=== PATIENT | female | born 1985 | race Caucasian/White ===

== ENCOUNTER 2016-07-05 11:40 | Inpatient (IN) | payer OTHER ==
[~2016-07-05] VITALS: Ht 167.6 cm; Wt 107.1 kg
[~2016-07-05 11:40] MED LIST: FERR-31 PO; PRENAT PO
[2016-07-05 12:05] VITALS: Ht 167.6 cm; Wt 107.1 kg
[2016-07-05 12:06] VITALS: BP 116/71; PULSE 93; RESP 18
--- NOTE | 2016-07-05 13:53 | RADRPT ---
PROCEDURE: US OB biophysical profile. CLINICAL INDICATION: decreased movements, size and dates TECHNIQUE: Multiple sonographic images of the pelvis were obtained. The images were reviewed on a PACS workstation. COMPARISON: 06/26/2016 FINDINGS: There is a single viable intrauterine gestation. Cardiac activity is present with 125 beats per min [place] band. There is a vertex presentation. The placenta is anterior. There is no evidence of placental abruption. There is a normal amount of amniotic fluid with an VERA = 13.6 cm. Biophysical profile: movement 0/2 tone 2/2. breathing 2/2 VERA 2/2 Total 08/15 RPTAT: AA . IMPRESSION: ABNORMAL biophysical profile. No significant movement noted during the study . Close follow-up is recommended. A call report was made and the findings discussed with nurse Patel at 07/05/2016 1:49:46 PM. .Francisco Dale MD, MD Date Time Electronically viewed and signed by .Francisco Dale MD, on 07/05/2016 13:53 .S/
[2016-07-05] MEDS ORDERED: CARBOPROST 250 MCG INJ IM PRN (14:30)
[2016-07-05] MEDS ORDERED: LACTATED RINGER'S 1,000 ML IV PRN (14:30)
[2016-07-05] MEDS ORDERED: OXYTOCIN 30 UNITS/LR 500 ML IV PRN (14:30)
[2016-07-05] MEDS ORDERED: BUTORPHANOL 2 MG INJ IV PRN (14:30)
[2016-07-05] MEDS ORDERED: METHYLERGONOVINE 0.2 MG INJ IM PRN (14:30)
[2016-07-05] MEDS ORDERED: IBUPROFEN 600 MG TAB PO PRN (14:30)
[2016-07-05] MEDS ORDERED: MISOPROSTOL 200 MCG TAB PR PRN (14:30)
[2016-07-05] MEDS ORDERED: LIDOCAINE 1% (MPF) 30 ML INJ INJ PRN (14:30)
[2016-07-05] MEDS ORDERED: DINOPROSTONE 10 MG VAG SUPP VAG ONE (15:00)
--- NOTE | 2016-07-05 15:10 | TRIAGE ---
OB Triage Datetime Report Generated by CPN: 07/05/2016 15:10 Datetime: 07/05/2016 14:52 Assessment Type: Admission Assessment Vaginal Bleeding: None Maternal Assessment Level of Consciousness: Fully Conscious DTR's/Clonus: DTRs 2+; No Clonus Headache: Denies Blurred Vision: No Respiratory Effort: Unlabored; Regular Rhythm; Equal Expansion Breath Sounds, Left: Clear and Equal Breath Sounds, Right: Clear and Equal Nausea/Vomiting: Denies RUQ Epigastric Pain: Denies Lower Extremities Edema: Bilateral Lower Extremities Upper Extremities Edema: Bilateral Upper Extremities Facial Edema: None Fall Risk Assessment History of Falling: (0) No Secondary Diagnosis: (0) No Ambulatory Aid: (0) Bedrest/Nurse Assist IV Therapy: (0) No Gait: (0) Normal/Bedrest/Immobile Mental Status: (0) Oriented to Own Ability Fall Score: 0 Fall Risk Score Definition: No Risk: No action required Pain Assessment Pain Scale: 0 Pain Presence: None/Denies Pain Type: N/A Pain Goal: 4 Membrane Status: Intact Datetime: 07/05/2016 14:40 Assessment Type: Ongoing Assessment Vaginal Bleeding: None Maternal Assessment Level of Consciousness: Fully Conscious DTR's/Clonus: DTRs 2+; No Clonus Headache: Denies Blurred Vision: No Respiratory Effort: Unlabored; Regular Rhythm; Equal Expansion Breath Sounds, Left: Clear and Equal Breath Sounds, Right: Clear and Equal Nausea/Vomiting: Denies RUQ Epigastric Pain: Denies Lower Extremities Edema: Bilateral Lower Extremities Upper Extremities Edema: Bilateral Upper Extremities Facial Edema: None Fall Risk Assessment History of Falling: (0) No Secondary Diagnosis: (0) No Ambulatory Aid: (0) Bedrest/Nurse Assist IV Therapy: (0) No Gait: (0) Normal/Bedrest/Immobile Mental Status: (0) Oriented to Own Ability Fall Score: 0 Fall Risk Score Definition: No Risk: No action required Pain Assessment Pain Scale: 0 Pain Presence: None/Denies Pain Type: N/A Pain Goal: 4 Membrane Status: Intact Datetime: 07/05/2016 14:32 Pain Assessment Pain Scale: 0 Pain Presence: None/Denies Pain Type: N/A Pain Goal: 4 Datetime: 07/05/2016 14:28 Arrived By: Ambulatory Arrived From: Home Datetime: 07/05/2016 13:51 Vaginal Exam Dilatation (cms): 1.0 Effacement (%): 40 Station: -3 Exam By: Mercy, RN Datetime: 07/05/2016 12:54 Headache: Denies Blurred Vision: No RUQ Epigastric Pain: Denies Facial Edema: None Labor Evaluation Frequency: irr Quality: Mild Pattern: Normal: <= 5 Contractions in 10 Minutes Resting Tone [place]: Relaxed Heart Rate FHR Baseline Rate: 135 FHR Baseline Changes: No Baseline Change Variability: Moderate 6-25 bpm Accelerations: 15X15 Decelerations: None Category: Category I Membrane Status: Intact Datetime: 07/05/2016 12:35 Heart Rate FHR Baseline Rate: 140 FHR Baseline Changes: No Baseline Change Comments: toco and u/s adjusted Datetime: 07/05/2016 12:21 Comments: maternal pulse Datetime: 07/05/2016 12:01 Stage of : OB Triage Maternal Assessment Level of Consciousness: Fully Conscious DTR's/Clonus: DTRs 2+; No Clonus Headache: Denies Blurred Vision: No Respiratory Effort: Unlabored; Regular Rhythm; Equal Expansion Breath Sounds, Left: Clear and Equal Breath Sounds, Right: Clear and Equal Nausea/Vomiting: Denies RUQ Epigastric Pain: Denies Lower Extremities Edema: Bilateral Lower Extremities Degree: 1+ Upper Extremities Edema: None Facial Edema: None Temperature Route: Oral Fall Risk Assessment History of Falling: (0) No Secondary Diagnosis: (0) No Ambulatory Aid: (0) Bedrest/Nurse Assist IV Therapy: (0) No Gait: (0) Normal/Bedrest/Immobile Mental Status: (0) Oriented to Own Ability Fall Score: 0 Fall Risk Score Definition: No Risk: No action required Monitor Mode: External Heart Rate FHR Baseline Rate: 133 (Annotations: initial) Monitor Mode: External US Comments: 0 Datetime: 07/05/2016 11:56 Time of Arrival: 07/05/2016 14:28 EGA: 37.5 Arrived By: Ambulatory Arrived From: Home Chief Complaint: bleeding Movement: Present Contractions: Occasional Rupture of Membranes: Denies Vaginal Bleeding: Small Vaginal Discharge: Present Recent Sexual Intercouse: Yes Abdominal Trauma: Not Applicable Patient Complaints: None Time Provider Notified: 07/05/2016 12:21 Provider Notified: Dr Paris Initial Plan: efm/ u/s for BPP
[2016-07-05 15:39] LABS: ADD SCAN DIFF NO
[2016-07-05 15:42] LABS: BASOPHILS % 0.2 % (0.0-2.0); EOSINOPHILS # 0.1 10^3/ul (0.0-0.5); EOSINOPHILS % 0.9 % (0.0-7.0); HEMATOCRIT 35.7 % (37.0-47.0); HEMOGLOBIN 11.8 g/dl (12.0-16.0); LYMPHOCYTES # 2.5 10^3/ul (0.8-2.9); LYMPHOCYTES % 20.8 % (15.0-51.0); MEAN CORPUSCULAR HEMOGLOBIN 27.6 pg (29.0-33.0); MEAN CORPUSCULAR HGB CONC 33.1 g/dl (32.0-37.0); MEAN CORPUSCULAR VOLUME 83.4 fl (82.0-101.0); MEAN PLATELET VOLUME 10.4 fl (7.4-10.4); MONOCYTE # 0.8 10^3/ul (0.3-0.9); MONOCYTES % 6.2 % (0.0-11.0); NEUTROPHIL # 8.6 10^3/ul (1.6-7.5); NEUTROPHILS % 71.3 % (39.0-77.0); PLATELET COUNT 287 10^3/UL (140-415); RED BLOOD COUNT 4.28 10^6/ul (4.20-5.40); RED CELL DISTRIBUTION WIDTH 13.8 % (11.5-14.5)
[2016-07-05] MEDS: LACTATED RINGER'S 1,000 ML IV SCH ×2 (15:56→19:33)
[2016-07-05 15:57] LABS: INR 0.94; PROTIME 12.6 Sec (12.2-14.2)
[2016-07-05 15:58] LABS: PARTIAL THROMBOPLASTIN TIME 31.6 Sec (25.0-35.0)
[2016-07-05] MEDS ORDERED: ONDANSETRON 4 MG INJ IV PRN (23:00)
--- NOTE | 2016-07-06 00:30 | NSTRPT ---
NST Information Datetime Report Generated by CPN: 07/06/2016 00:30 Datetime: 07/03/2016 10:19 NST Information EGA: 37.3 Test Number: 2 Time on Monitor: 07/03/2016 10:27 Time off Monitor: 07/03/2016 10:57 NST Duration (Min): 30 Reason for NST: Other Reason for NST Other: SMALL FOR DATES Test and Monitor Explained: Monitor Explained; Test Explained; Verbalized Understanding; Breastfee ding Info Given Pulse: 82 Resp: 18 SBP: 109 DBP: 69 Test Evaluation NST Interventions: None Patient States Movement: Present Contraction Frequency: NONE FHR Baseline : 130 Variability: Moderate 6-25bpm Accelerations: 15X15 FHR Category: Category I NST Results: Reactive Comments: PT TO U/S. VERA 13.8cm. CEPHALIC. 1142-Pt home undelivered with LABOR precautions. Follow up NST appointment given. Kick Count instructions reviewed. Pt states underestanding. No furh ter questions asked at this time. Electronically Signed By E-Signature: with User ID: [id number] Datetime: 06/26/2016 10:18 NST Information EGA: 36.3 Datetime: 06/26/2016 10:10 NST Duration (Min): 33
[2016-07-06] MEDS: LACTATED RINGER'S 1,000 ML IV SCH ×2 (00:39→03:32)
[2016-07-06] MEDS ORDERED: FENTAnyl 2MCG/ML-ROPIV 0.2% 100 ML ONE (01:02)
[2016-07-06] MEDS ORDERED: METHYLERGONOVINE 0.2 MG INJ IM PRN (06:00)
[2016-07-06] MEDS ORDERED: LANOLIN 7 GM TUBE TOP PRN (06:00)
[2016-07-06] MEDS ORDERED: ACETAMINOPHEN 325 MG TAB PO PRN ×2 (06:00)
[2016-07-06] MEDS ORDERED: BENZOCAINE 20% 56 ML SPRAY TOP PRN (06:00)
[2016-07-06] MEDS ORDERED: OXYTOCIN 30 UNITS/LR 500 ML IV PRN (06:00)
[2016-07-06] MEDS ORDERED: CARBOPROST 250 MCG INJ IM PRN (06:00)
[2016-07-06] MEDS ORDERED: ONDANSETRON 4 MG INJ IV PRN (06:00)
[2016-07-06] MEDS ORDERED: DIBUCAINE 1% 30 GM OINT PR PRN (06:00)
[2016-07-06] MEDS ORDERED: DIPHENHYDRAMINE 25 MG CAP PO PRN (06:00)
[2016-07-06] MEDS ORDERED: ACETAMINOPHEN/CODEINE #3 TAB PO PRN ×2 (06:00)
[2016-07-06] MEDS ORDERED: MISOPROSTOL 200 MCG TAB PR PRN (06:00)
--- NOTE | 2016-07-06 06:04 | HP ---
Date/Time of Note Date/Time of Note DATE: 07/05 TIME: 10 PM OB - History Hx of Present Last Menstrual Period: Oct 18, 2015 (10/2015) Estimated Due Date: July 21, 2016 : 2 Para: 1 Care: Good Care Ultrasounds: Normal mid trimester US Obstetrical Complications: None, Growth Restriction Past Family/Social History * Past Medical, Surgical, Family and Obstetric Histories reviewed from chart. Blood Type: O+ Rubella: immune RPR/VDRL: Negative GBS Status: Negative HBsAG: Negative OB Admission Exam Vital Signs Vital Signs Vital Signs Date Time Temp Pulse Resp B/P Pulse Ox O2 Delivery O2 Flow Rate FiO2 07/05/16 12:06 98.0 93 18 116/71 98 Room Air Physical Exam HEENT: WNL Heart: Rhythm Normal Lungs: Clear, Equal Abdomen: WNL Extremities: Normal Reflexes: Normal Cervical Dilatation: 1cm Effacement: 50% Station: -2 Membranes: Intact Heart Rate: 120's Accelerations: Accelerations Present Varibility: Moderate Contractions on Admission: >10 Minutes Apart Intensity: Mild Last 72 hours Lab Results CBC & BMP 07/05/16 14:20 OB Assessment/Plan Reason for admission: induction of labor, vaginal bleeding Other Assessment: started bleeding BPP 6/8 FOR INDUCTION Plan: Induction Induction Method: per Misoprostol Protocol Other plan: DELIVERY SENG FERNANDEZ MD Jul 06, 2016 06:04
--- NOTE | 2016-07-06 06:07 | LDN ---
Date/Time of Note Date/Time of Note DATE: 07/06/16 TIME: 06:04 Delivery Summary SPONTANEOUS VAGINAL DELIVERY Weeks of Gestation 37.6 WEEKS Placenta Delivered: Spontaneously Meconium: none Episiotomy: No Sponge & Needle done & correct: Yes All needle counts correct: Yes Any foreign bodies felt in the: No Problems: Delivery Information Sex Sex: female Apgars 1 Minute: 9 5 Minute: 9 Suctioning Nose & mouth suctioned at lesley: No Delee suction performed: No Umbilical Cord Umbilical cord with: 3 Vessels Cord presentations: nuchal cord Nuchal cord present X: 1 Cord Blood was obtained: Yes Mother & Baby Disposition Disposition Mom & Baby to Maternity; Good: Yes SENG FERNANDEZ MD Jul 06, 2016 06:07
[2016-07-06] MEDS: OXYTOCIN 30 UNITS/LR 500 ML IV SCH ×7 (06:45→22:08)
[2016-07-06] MEDS: IBUPROFEN 800 MG TAB PO SCH ×3 (09:01→17:57)
[2016-07-06 10:20] VITALS: BP 114/74; PULSE 75; RESP 16
[2016-07-06 11:55] VITALS: BP 103/64; PULSE 73; RESP 14
[2016-07-06] MEDS: SENNA/DOCUSATE NA (8.6MG/50MG) TAB PO SCH ×2 (12:02→21:08)
[2016-07-06 16:00] VITALS: BP 112/69; PULSE 75; RESP 14
[2016-07-06 20:00] VITALS: BP 120/66; PULSE 70; RESP 20
[2016-07-07] MEDS: IBUPROFEN 800 MG TAB PO SCH ×5 (00:01→23:25)
[2016-07-07] MEDS: OXYTOCIN 30 UNITS/LR 500 ML IV SCH ×2 (02:08→06:08)
[2016-07-07 04:11] VITALS: BP 119/62; PULSE 70; RESP 20
[2016-07-07 07:38] LABS: ADD SCAN DIFF NO
[2016-07-07 07:42] LABS: BASOPHILS % 0.4 % (0.0-2.0); EOSINOPHILS # 0.2 10^3/ul (0.0-0.5); EOSINOPHILS % 2.3 % (0.0-7.0); LYMPHOCYTES # 3.4 10^3/ul (0.8-2.9); LYMPHOCYTES % 34.5 % (15.0-51.0); MEAN CORPUSCULAR HGB CONC 32.3 g/dl (32.0-37.0); MEAN CORPUSCULAR VOLUME 83.8 fl (82.0-101.0); MEAN PLATELET VOLUME 10.2 fl (7.4-10.4); MONOCYTE # 0.6 10^3/ul (0.3-0.9); MONOCYTES % 5.9 % (0.0-11.0); NEUTROPHIL # 5.6 10^3/ul (1.6-7.5); NEUTROPHILS % 56.5 % (39.0-77.0); PLATELET COUNT 233 10^3/UL (140-415); RED CELL DISTRIBUTION WIDTH 13.8 % (11.5-14.5)
[2016-07-07 08:20] VITALS: BP 116/70; PULSE 68; RESP 17
[2016-07-07] MEDS: SENNA/DOCUSATE NA (8.6MG/50MG) TAB PO SCH ×2 (09:54→21:00)
--- NOTE | 2016-07-07 13:30 | PN ---
Date/Time of Note Date/Time of Note DATE: 07/07/16 TIME: 13:29 OB Subjective Subjective Subjective day 1 doing well breast feeding uterus contracted lochia normal OB Objective HEENT: WNL Heart: Rhythm Normal Lungs: Clear, Equal Abdomen: WNL Extremities: Normal Reflexes: Normal SENG FERNANDEZ MD Jul 07, 2016 13:30
[2016-07-07 16:00] VITALS: BP 117/66; PULSE 73; RESP 16
[2016-07-07 20:00] VITALS: BP 110/68; PULSE 72; RESP 20
[2016-07-08 04:19] VITALS: BP 122/62; PULSE 72; RESP 20
[2016-07-08] MEDS: IBUPROFEN 800 MG TAB PO SCH ×2 (05:13→12:40)
[2016-07-08 08:00] VITALS: BP 111/68; PULSE 92; RESP 18
[2016-07-08] MEDS: SENNA/DOCUSATE NA (8.6MG/50MG) TAB PO SCH (08:59)
[2016-07-08] MEDS ORDERED: DIPHTH/TET/ACEL PERTUSS (ADULT) 0.5 ML VIAL IM* ONE (09:00)
[2016-07-08] MEDS ORDERED: VARICELLA VACCINE LIVE/PF 1,350 UNIT/0.5 ML ML SC* ONE (09:00)
--- NOTE | 2016-07-08 09:59 | PD.PPDC ---
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
--- NOTE | 2016-07-08 10:56 | DS ---
Date/Time of Note Date/Time of Note DATE: 07/08/16 TIME: 10:55 Obstetrical Discharge Record Final Diagnosis Final Diagnosis: Term delivered Vaginal Delivery Obstetrical Delivery: Spontaneous Complications Other Induction: Yes Condition on Discharge Physical Assessment Voiding: Yes Bowel Movement: Yes Breast: Soft, non-tender, Filling Fundus: Firm Calf Tenderness: No Patient Condition: Good SENG FERNANDEZ MD July 08, 2016 10:56
== END 2016-07-08 14:51 | disposition home or self-care (01) | DRG 775 ==
LOC: OBT 11:40 → L-D 11:41 → OBT 14:00 → L-D 14:00 → PP1 07-06 10:01
PROVIDERS: ADMIT Obstetrics & Gynecology; ATTEND Obstetrics & Gynecology
PROC: 10E0XZZ Delivery of Products of Conception, External Approach (ICD-10-PCS; principal; 2016-07-06)
DX: O69.81X0 Labor and delivery complicated by cord around neck, without compression, not applicable or unspecified (principal); Z37.0 Single live birth; Z3A.37 37 weeks gestation of pregnancy
CPT/HCPCS: 62319; 76818; 85025; 85610; 85730; 86592; 86900; 86901; 88307; 90715; 90716; C1751; G0463; J2405; J2590; J3010; J7120

== ENCOUNTER 2017-11-25 17:07 | Outpatient (CLI) | END 2017-11-25 21:20 | disposition home or self-care (01) ==

== ENCOUNTER 2018-01-21 13:27 | Outpatient (CLI) | END 2018-01-21 15:39 | disposition home or self-care (01) ==

== ENCOUNTER 2018-02-23 21:02 | Outpatient (CLI) | END 2018-02-24 00:02 | disposition home or self-care (01) ==

== ENCOUNTER 2018-02-27 00:19 | Outpatient (CLI) | END 2018-02-27 03:15 | disposition home or self-care (01) ==

== ENCOUNTER 2018-03-01 08:00 | Inpatient (IN) | payer OTHER ==
[~2018-03-01] VITALS: Ht 167.6 cm; Wt 117.7 kg
[~2018-03-01 08:00] MED LIST changes: +FER325 PO; -FERR-31 PO; +FOLI0.4T2 PO; +PREN-93 PO; -PRENAT PO
[2018-03-01] MEDS ORDERED: LACTATED RINGER'S 1,000 ML IV PRN (11:58)
[2018-03-01] MEDS ORDERED: CARBOPROST 250 MCG INJ IM PRN (12:00)
[2018-03-01] MEDS ORDERED: IBUPROFEN 600 MG TAB PO PRN (12:00)
[2018-03-01] MEDS ORDERED: METHYLERGONOVINE 0.2 MG INJ IM PRN (12:00)
[2018-03-01] MEDS ORDERED: OXYTOCIN 30 UNITS/LR 500 ML IV SCH ×2 (12:00)
[2018-03-01] MEDS ORDERED: MISOPROSTOL 200 MCG TAB PR PRN (12:00)
[2018-03-01] MEDS ORDERED: BUTORPHANOL 2 MG INJ IV PRN (12:00)
[2018-03-01] MEDS ORDERED: BUTORPHANOL 1 MG INJ IV PRN (12:00)
[2018-03-01] MEDS ORDERED: OXYTOCIN 30 UNITS/LR 500 ML IV PRN (12:00)
[2018-03-01] MEDS ORDERED: LIDOCAINE 1% (MPF) 30 ML INJ INJ PRN (12:00)
[2018-03-01 12:14] VITALS: Ht 167.6 cm; Wt 117.7 kg
[2018-03-01] MEDS: LACTATED RINGER'S 1,000 ML IV SCH ×2 (13:08→15:50)
[2018-03-01] MEDS ORDERED: ACETAMINOPHEN 500 MG TAB PO PRN (13:30)
[2018-03-01] MEDS: MISOPROSTOL 50 MCG CAPSULE VAG SCH ×2 (14:32→18:35)
[2018-03-02] MEDS: LACTATED RINGER'S 1,000 ML IV SCH ×5 (01:06→19:43)
--- NOTE | 2018-03-02 01:48 | PREAC ---
Date/Time of Note Date/Time of Note DATE: 03/02/18 TIME: 01:47 Anesthesia Eval and Record Evaluation Time Pre-Procedure Interview DATE: 03/02/18 TIME: 01:47 Age 32 Sex female NPO: Other Preoperative diagnosis labor pain Planned procedure epidural Past Medical History Past Medical History: Includes GI: Morbid obesity Surgery & Anesthesia Issues No known issue Meds Anticoagulation: No Beta Bernard within 24 hr: No Reason Beta Bernard not given: Pt. not on B-Bernard Reported Medications Folic Acid* (Folic Acid*) 0.4 Mg Tablet, 0.4 MG PO DAILY, TAB 02/27/18 Ferrous Sulfate* (Ferrous Sulfate*) 325 Mg Tabec, 325 MG PO DAILY, TAB 02/23/18 Vit No.124/Iron/FA ( Vitamin Tablet) 1 Each Tablet, 1 EACH PO, TAB 02/23/18 Current Medications Lactated Ringer's 1,000 ml @ 125 mls/hr Q8H IV Last administered on 03/02/18at 01:06; Admin Dose 125 MLS/HR; Start 03/01/18 at 11:58 Butorphanol Tartrate (Stadol) 1 mg Q2H PRN IV PAIN; Start 03/01/18 at 12:00 Butorphanol Tartrate (Stadol) 2 mg Q2H PRN IV PAIN; Start 03/01/18 at 12:00 Lidocaine (Xylocaine 1% (Mpf)) 30 ml ONCE PRN INJ EPISIOTOMY; Start 03/01/18 at 12:00 Oxytocin/Lactated Ringer's 500 ml @ 500 mls/hr ONCE POST IV ; Start 03/01/18 at 12:00 Oxytocin/Lactated Ringer's 500 ml @ 125 mls/hr POST IV ; Start 03/01/18 at 12:00 Ibuprofen (Motrin) 600 mg ONCE PRN PO PAIN LEVEL 1-5; Start 03/01/18 at 12:00 Lactated Ringer's 1,000 ml @ 2,000 mls/hr Q30M PRN IV ANESTHESIA; Start 03/01/18 at 11:58 Oxytocin/Lactated Ringer's 500 ml @ 0 mls/hr ONCE PRN IV VAGINAL BLEEDING; St art 03/01/18 at 12:00 Methylergonovine Maleate (Methergine) 0.2 mg ONCE PRN IM VAGINAL BLEEDING; St art 03/01/18 at 12:00 Carboprost Tromethamine (Hemabate) 250 mcg ONCE PRN IM VAGINAL BLEEDING; Start 03/01/18 at 12:00 Misoprostol (Cytotec) 1,000 mcg ONCE PRN [place] VAGINAL BLEEDING; Start 03/01/18 at 12:00 Misoprostol (Cytotec 50 Mcg Capsule) 50 mcg Q4 VAG Last administered on 03/01/18at 18:35; Admin Dose 50 MCG; Start 03/01/18 at 14:00 Acetaminophen (Tylenol Tab) 1,000 mg Q6H PRN PO MILD PAIN(1-3)OR ELEVATED TEMP; Start 03/01/18 at 13:30 Meds reviewed: Yes Allergies Coded Allergies: cigarette smoke (Verified Allergy, Severe, 02/15/18) throat tightens up mushroom (Verified Allergy, Intermediate, 02/15/18) olive extract (Verified Allergy, Intermediate, 02/15/18) grass pollen (Verified Allergy, Mild, itching, 02/15/18) Allergies Reviewed: Yes Labs/Studies Labs Reviewed: Reviewed by anesthesiologist Result Diagram: 03/01/18 1228 03/01/18 1228 Laboratory Tests 03/01/18 12:28 Blood Bank Test 03/01/18 12:28 Antibody Screen NEGATIVE Blood Type O POSITIVE Rh Immune Globulin Candidate NO test: N/A Pre-procedure Exam Airway: Adequate mouth opening, Adequate thyromental dist Mallampati: Mallampati III Teeth: Normal Lung: Normal Heart: Normal ASA Physical Status ASA physical status: 3 Emergency: None Pre-operative Attestations Prior to commencing anesthesia and surgery, the patient was re-evaluated, there was verification of: *The patient's identity *The results of appropriate recent lab work and preoperative vital signs *The above evaluation not changing prior to induction *Anesthetic plan, risk benefits, alternative and complications discussed with patient/family; questions answered; patient/family understands, accepts and wishes to proceed. ANTONI MCLAUGHLIN DO Mar 02, 2018 01:48
[2018-03-02] MEDS ORDERED: FENTAnyl 2MCG/ML-ROPIV 0.2% 100 ML ONE (01:51)
[2018-03-02] MEDS ORDERED: NALOXONE (0.4 MG/ML) INJ IV PRN (02:00)
[2018-03-02] MEDS: FENTAnyl 2MCG/ML-ROPIV 0.2% 100 ML BAG EPI SCH ×3 (02:59→21:07)
[2018-03-02] MEDS ORDERED: ONDANSETRON 4 MG INJ IV PRN (03:00)
--- NOTE | 2018-03-02 03:39 | PAC ---
Date/Time of Note Date/Time of Note DATE: 03/02/18 TIME: 03:39 Post-Anesthesia Notes Post-Anesthesia Note Activity: WNL Respiratory function: WNL Cardiovascular function: WNL Mental status: Baseline Pain reasonably controlled: Yes Hydration appropriate: Yes Nausea/Vomiting absent: Yes ANTONI MCLAUGHLIN DO Mar 02, 2018 03:39
[2018-03-02] MEDS: MISOPROSTOL 50 MCG CAPSULE VAG SCH ×2 (03:41→08:02)
--- NOTE | 2018-03-02 09:44 | HP ---
Date/Time of Note Date/Time of Note DATE: 03/02/18 TIME: 09:35 OB - History Hx of Present Free Text/Dictation 32 years old female 3 para 2 with 2 spontaneous vaginal deliveries first baby with severe preeclampsia and second baby with hypertension. EDC is March 16 . the patient has been observed in the third trimester due to growth retardation and small for gestational age, with low growth percentile. the patient also has a history of having headaches again with dizziness and blood pressure coming up slightly. Maternal obesity. Due to impending preeclampsia and growth retardation she is undergoing induction of labor Last Menstrual Period: Jun 11, 2017 Estimated Due Date: Mar 16, 2018 : 3 Para: 2 Care: Good Care Obstetrical Complications: Pre-eclampsia, Growth Restriction Other Concerns: Maternal obesity Past Family/Social History * Past Medical, Surgical, Family and Obstetric Histories reviewed from chart. Blood Type: O+ Rubella: immune RPR/VDRL: Negative GBS Status: Negative HBsAG: Negative OB Admission Exam Physical Exam HEENT: WNL Heart: Rhythm Normal Lungs: Clear, Equal Abdomen: WNL Extremities: Normal Reflexes: Normal Cervical Dilatation: 2cm Station: -3 Membranes: Intact Accelerations: Accelerations Present Contractions on Admission: >10 Minutes Apart Intensity: Mild Last 72 hours Lab Results CBC & BMP 03/01/18 12:28 Liver Function Test 03/01/18 12:28 Alanine Aminotransferase (ALT/SGPT) 18 Albumin 3.5 Alkaline Phosphatase 113 Aspartate Amino Transf (AST/SGOT) 25 Direct Bilirubin 0.00 Total Protein 6.7 OB Assessment/Plan Reason for admission: induction of labor Induction Method: per Misoprostol Protocol SENG FERNANDEZ MD Mar 02, 2018 09:44
[2018-03-02] MEDS ORDERED: OXYTOCIN 30 UNITS/LR 500 ML IV SCH (12:30)
[2018-03-03] MEDS ORDERED: DIPHENHYDRAMINE 50 MG INJ IM PRN (02:00)
[2018-03-03] MEDS ORDERED: DIPHENHYDRAMINE 50 MG INJ IV PRN ×3 (02:13→05:30)
[2018-03-03] MEDS: LACTATED RINGER'S 1,000 ML IV* SCH ×3 (05:09→20:24)
--- NOTE | 2018-03-03 05:19 | LDN ---
Date/Time of Note Date/Time of Note DATE: 03/03/18 TIME: 05:15 Delivery Summary 32 years old female 3 para 2 with 37-1/2 weeks and intrauterine growth retardation and history of preeclampsia with impending preeclampsia right now The patient was advised for induction of labor due to blood pressures that were rising up in the office and also due to the fact that perinatologists was seen her twice a week for intrauterine growth retardation Weeks of Gestation 38.5 Placenta Delivered: Spontaneously Meconium: none Episiotomy: No Anesthesia type: Epidural Estimated blood loss: 100 Sponge & Needle done & correct: Yes All needle counts correct: Yes Any foreign bodies felt in the: No Delivery Information Sex Infant Sex: male Apgars 1 Minute: 9 Suctioning Nose & mouth suctioned at lesley: Yes Umbilical Cord Umbilical cord with: 3 Vessels Cord presentations: nuchal cord Nuchal cord present X: 1 Cord Blood was obtained: Yes Mother & Baby Disposition Disposition Mom & Baby to Maternity; Good: Yes SENG FERNANDEZ MD Mar 03, 2018 05:19
[2018-03-03] MEDS ORDERED: ACETAMINOPHEN 325 MG TAB PO PRN ×2 (05:30)
[2018-03-03] MEDS ORDERED: ONDANSETRON 4 MG INJ IV PRN (05:30)
[2018-03-03] MEDS ORDERED: OXYTOCIN 30 UNITS/LR 500 ML IV PRN (05:30)
[2018-03-03] MEDS ORDERED: ONDANSETRON 4 MG TAB PO PRN (05:30)
[2018-03-03] MEDS ORDERED: METHYLERGONOVINE 0.2 MG INJ IM PRN (05:30)
[2018-03-03] MEDS ORDERED: SENNA/DOCUSATE NA (8.6MG/50MG) TAB PO PRN (05:30)
[2018-03-03] MEDS ORDERED: HYDROCODONE/APAP (5/325) TAB PO PRN ×2 (05:30)
[2018-03-03] MEDS ORDERED: CARBOPROST 250 MCG INJ IM PRN (05:30)
[2018-03-03] MEDS ORDERED: MISOPROSTOL 200 MCG TAB PR PRN (05:30)
[2018-03-03] MEDS ORDERED: MAGNESIUM HYDROXIDE 30ML CUP PO PRN (05:30)
[2018-03-03] MEDS ORDERED: DIPHENHYDRAMINE 25 MG CAP PO PRN (05:30)
[2018-03-03] MEDS ORDERED: DIBUCAINE 1% 30 GM OINT TOP PRN (05:30)
[2018-03-03] MEDS ORDERED: LANOLIN HPA 1 PKT TOP PRN (05:30)
[2018-03-03] MEDS ORDERED: BENZOCAINE 20% 56 ML SPRAY TOP PRN (05:30)
[2018-03-03 06:35] VITALS: BP 121/61; PULSE 102; RESP 19
--- NOTE | 2018-03-03 06:50 | NUR ---
EOSSstable, fundus firm & contracted, normal lochia, due to void, bonding well with baby.
[2018-03-03] MEDS: IBUPROFEN 800 MG TAB PO SCH ×3 (06:58→17:24)
[2018-03-03 08:00] VITALS: BP 118/70; PULSE 80; RESP 18
[2018-03-03 16:00] VITALS: BP 101/70; PULSE 85; RESP 18
--- NOTE | 2018-03-03 18:01 | NUR ---
EOSS. PT, IS IN STABLE CONDITION .FUNDUS FIRM NORMAL BLEEDING . NO COMPLAINED OF PAIN OR ANY PROBLEM . UNDER OBSERVATION .
[2018-03-03 20:00] VITALS: BP 101/65; PULSE 88; RESP 20
[2018-03-04] VITALS: BP 116/74; PULSE 81; RESP 18
[2018-03-04] MEDS: IBUPROFEN 800 MG TAB PO SCH ×5 (00:28→23:51)
[2018-03-04 04:00] VITALS: BP 104/74; PULSE 79; RESP 18
--- NOTE | 2018-03-04 06:54 | NUR ---
EOSS: VSS. FUNDUS FIRM, BLEEDING NORMAL. UP AD VINI. NO C/O PAIN. EXCLUSIVE BREAST FEEDING. BONDING WELL WITH BABY.
[2018-03-04 08:20] VITALS: BP 121/80; PULSE 76; RESP 20
--- NOTE | 2018-03-04 12:33 | PN ---
Date/Time of Note Date/Time of Note DATE: 03/04/18 TIME: 12:31 OB Subjective Subjective Subjective Day 1 post vaginal delivery. Doing well asymptomatic Breast-feeding, uterus contracted, lochia normal Legs with no edema and normal reflexes. Possible home tomorrow. CBC near normal OB Objective HEENT: WNL Heart: Rhythm Normal Lungs: Clear, Equal Abdomen: WNL Extremities: Normal Reflexes: Normal SENG FERNANDEZ MD Mar 04, 2018 12:33
[2018-03-04 16:23] VITALS: BP 131/60; PULSE 85; RESP 20
--- NOTE | 2018-03-04 17:50 | NUR ---
EOSS; BONDING WELL. VOIDING , HAD A BOWEL MOVEMENT, FUNDUS FIRM . NO DISTRESS NOTED. BREAST AND BOTTLE FEEDING.
[2018-03-04 20:00] VITALS: BP 112/65; PULSE 75; RESP 19
[2018-03-05 04:00] VITALS: BP 108/73; PULSE 71; RESP 17
--- NOTE | 2018-03-05 05:40 | NUR ---
EOSS: PT IS STABLE. BREAST AND BOTTLE FEEDING. PT BONDING WELL WITH BABY.
[2018-03-05] MEDS: IBUPROFEN 800 MG TAB PO SCH (05:52)
[2018-03-05 08:50] VITALS: BP 113/77; PULSE 72; RESP 19
[2018-03-05] MEDS ORDERED: VARICELLA VACCINE LIVE/PF 1,350 UNIT/0.5 ML ML SC* ONE (09:00)
[2018-03-05] MEDS ORDERED: MEASLES,MUMPS,RUBELLA VACCINE INJ SC* ONE (09:00)
[2018-03-05] MEDS ORDERED: DIPHTH/TET/ACEL PERTUSS (ADULT) 0.5 ML VIAL IM* ONE (09:00)
--- NOTE | 2018-03-05 10:23 | PD.PPDC ---
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
--- NOTE | 2018-03-05 10:29 | DS ---
Date/Time of Note Date/Time of Note DATE: 03/05/18 TIME: 10:25 Obstetrical Discharge Record Final Diagnosis Final Diagnosis: Term delivered Other Final Diagnosis Mild [place] Maternal obesity Intrauterine Growth retardation induction of labor Vaginal Delivery Obstetrical Delivery: Spontaneous Condition on Discharge Physical Assessment Last Vitals: BP 110/80 Voiding: Yes Bowel Movement: Yes Breast: Soft, non-tender Fundus: Firm Calf Tenderness: No Patient Condition: Good SENG FERNANDEZ MD Mar 05, 2018 10:29
--- NOTE | 2018-03-05 12:15 | NUR ---
PT DISCHARGED HOME WITH BABY. PROVIDED PT WITH A NIPPLE SHIELD, AND A BREAST PUMP. EDUCATED PT ABOUT MILK STORAGE, PUMPING AND SAFETY. Addendum: 03/05/18 at 1343 by BROCK HOLLEY RN Amended: Links added.
== END 2018-03-05 13:14 | disposition home or self-care (01) | DRG 807 ==
LOC: L-D 09:30 → PP1 03-03 06:28
PROVIDERS: ADMIT Obstetrics & Gynecology; ATTEND Obstetrics & Gynecology
PROC: 10E0XZZ Delivery of Products of Conception, External Approach (ICD-10-PCS; principal; 2018-03-03)
PROC: 3E033VJ Introduction of Other Hormone into Peripheral Vein, Percutaneous Approach (ICD-10-PCS; 2018-03-03)
DX: O14.13 Severe pre-eclampsia, third trimester (principal); Z37.0 Single live birth; O36.5930 Maternal care for other known or suspected poor fetal growth, third trimester, not applicable or unspecified; O99.213 Obesity complicating pregnancy, third trimester; E66.01 Morbid (severe) obesity due to excess calories; Z3A.37 37 weeks gestation of pregnancy
CPT/HCPCS: 62319; 80053; 81001; 84560; 85025; 85384; 85610; 85730; 86592; 86850; 86900; 86901; 87340; 90715; J1200; J2405; J2590; J3010; J7120

== ENCOUNTER 2018-08-16 12:30 | Emergency (ER) | payer OTHER ==
[~2018-08-16] VITALS: Ht 170.2 cm; Wt 124.0 kg
[2018-08-16 12:37] VITALS: BP 154/94; PULSE 93; RESP 18; Ht 170.2 cm; Wt 124.0 kg
[2018-08-16] MEDS ORDERED: IBUP-1542 PO (13:50)
--- NOTE | 2018-08-16 14:03 | ERD ---
ER Documentation Chief Complaint Chief Complaint RIGHT LOWER PELVIC PAIN X 2 WEEKS, DENIES DYSURIA/HEMATURIA HPI 32-year-old female presents to the ED complaining of right inguinal pain x2 weeks. She states pain is intermittent, sharp and worse when walking. She states her pain was worse yesterday, prompting her visit today. She denies any urinary symptoms. Denies any flank pain. Denies any abdominal pain. Denies any heavy or painful menses, her last menstrual cycle was July 24, 2018 and will be starting her menstrual cycle again soon. ROS All systems reviewed and are negative except as per history of present illness. Medications Home Meds Active Scripts Ibuprofen* (Motrin*) 600 Mg Tab, 600 MG PO Q6H PRN for PAIN AND OR ELEVATED TEMP, #30 TAB Prov:HOLLIE THOMAS PA-C 08/16/18 Reported Medications Folic Acid* (Folic Acid*) 0.4 Mg Tablet, 0.4 MG PO DAILY, TAB 02/27/18 Ferrous Sulfate* (Ferrous Sulfate*) 325 Mg Tabec, 325 MG PO DAILY, TAB 02/23/18 Vit No.124/Iron/FA ( Vitamin Tablet) 1 Each Tablet, 1 EACH PO, TAB 02/23/18 Allergies Allergies: Coded Allergies: cigarette smoke (Verified Allergy, Severe, 02/15/18) throat tightens up mushroom (Verified Allergy, Intermediate, 02/15/18) olive extract (Verified Allergy, Intermediate, 02/15/18) grass pollen (Verified Allergy, Mild, itching, 02/15/18) PMhx/Soc Medical and Surgical Hx: pt denies Surgical Hx Smoking Status: Never smoker Physical Exam Vitals Vital Signs Date Temp Pulse Resp B/P (MAP) Pulse Ox O2 O2 Flow FiO2 Time Delivery Rate 08/16/18 98.7 93 18 154/94 98 12:37 (114) Physical Exam Const: No acute distress Head: Atraumatic Eyes: Normal Conjunctiva ENT: Normal External Ears, Nose and Mouth. Neck: Full range of motion. No meningismus. Resp: Clear to auscultation bilaterally Cardio: Regular rate and rhythm, no murmurs Abd: Soft,+ right inguinal tenderness to palpation. Negative McBurney's. Negative Perez's. No rebound, no guarding. Non distended. Normal bowel sounds. No appreciable hernia or mass Skin: No petechiae or rashes Back: No midline or flank tenderness Ext: No cyanosis, or edema Neur: Awake and alert Psych: Normal Mood and Affect Results 24 hrs Laboratory Tests Test 08/16/18 13:16 Urine Color YELLOW Urine Clarity SLIGHTLY CLOUDY Urine pH 5.0 Urine Specific [place] 1.028 Urine Ketones NEGATIVE mg/dL Urine Nitrite NEGATIVE mg/dL Urine Bilirubin NEGATIVE mg/dL Urine Urobilinogen NEGATIVE mg/dL Urine Leukocyte Esterase TRACE Pedro/ul Urine Microscopic RBC 16 /HPF Urine Microscopic WBC 3 /HPF Urine Squamous Epithelial Cells MODERATE /HPF Urine Bacteria FEW /HPF Urine Mucus FEW /HPF Urine Hemoglobin 2+ mg/dL Urine Glucose NEGATIVE mg/dL Urine Total Protein NEGATIVE mg/dl Urine Test NEGATIVE Procedures/MDM LABS & DIAGNOSTIC IMAGING: Urine: no e/o acute infection or hematuria Upreg: neg PROCEDURE: US Pelvis. CLINICAL INDICATION: Right-sided pain TECHNIQUE: Multiple sonographic images of the pelvis were obtained utilizing a transabdominal and endovaginal technique. The images were reviewed on a PACS workstation. COMPARISON: None. FINDINGS: The uterus is retroverted and measures 7.2 x 4.4 x 4.7 cm. The uterus of normal contour and echogenicity. There is a thin well-demarcated endometrial stripe complex which measures 7.7 millimeters in transverse diameter. There is no fluid in the canal. . The right ovary has a normal echotexture and measures 2.8 x 1.9 x 3.3 cm . The left ovary has a normal echotexture and measures 3.8 x 2.3 x 3.5 cm. No adnexal masses are noted. No solid pelvic masses seen. There is a small volume of free fluid in the pelvis. IMPRESSION: Normal uterus and ovaries. MEDICAL DECISION MAKIN-year-old female presents with right inguinal pain. She has no evidence of hernia on physical exam, I have low suspicion for incarcerated or strangulated hernia. Her pelvic ultrasound is negative for ovarian torsion or ruptured ovarian cyst. Symptoms could be musculoskeletal nature, likely an inguinal strain. I have low suspicion for appendicitis, pancreatitis, ch olecystitis, PID or any other emergent process at this time. Patient was given Rx ibuprofen and told to follow-up with her [employer]/PCP sometime this week. Strict return precautions were discussed. PRESCRIPTIONS: Ibuprofen SPECIALIST FOLLOW UP RECOMMENDED: None Patient has been advised to follow up with primary care in 1-2 days. Departure Diagnosis: Primary Impression: Pelvic pain Condition: Stable Patient Instructions: Pelvic Pain, Unknown Cause Referrals: [facility] YOU HAVE RECEIVED A MEDICAL SCREENING EXAM AND THE RESULTS INDICATE THAT YOU DO NOT HAVE A CONDITION THAT REQUIRES URGENT TREATMENT IN THE EMERGENCY DEPARTMENT. FURTHER EVALUATION AND TREATMENT OF YOUR CONDITION CAN WAIT UNTIL YOU ARE SEEN IN YOUR DOCTORS OFFICE WITHIN THE NEXT 1-2 DAYS. IT IS YOUR RESPONSIBILITY TO MAKE AN APPOINTMENT FOR FOLOW-UP CARE. IF YOU HAVE A PRIMARY DOCTOR --you should call your primary doctor and schedule an appointment IF YOU DO NOT HAVE A PRIMARY DOCTOR YOU CAN CALL OUR PHYSICIAN REFERRAL HOTLINE AT IF YOU CAN NOT AFFORD TO SEE A PHYSICIAN YOU CAN CHOSE FROM THE FOLLOWING [facility] [address] [facility]. [facility] [address] [facility] [address] [facility] [address] [facility] [address] [facility]. [facility] [address] [facility]. [facility] YOU HAVE RECEIVED A MEDICAL SCREENING EXAM AND THE RESULTS INDICATE THAT YOU DO NOT HAVE A CONDITION THAT REQUIRES URGENT TREATMENT IN THE EMERGENCY DEPARTMENT. FURTHER EVALUATION AND TREATMENT OF YOUR CONDITION CAN WAIT UNTIL YOU ARE SEEN IN YOUR DOCTORS OFFICE WITHIN THE NEXT 1-2 DAYS. IT IS YOUR RESPONSIBILITY TO MAKE AN APPOINTMENT FOR FOLOW-UP CARE. IF YOU HAVE A PRIMARY DOCTOR --you should call your primary doctor and schedule and appointment IF YOU DO NOT HAVE A PRIMARY DOCTOR YOU CAN CALL OUR PHYSICIAN REFERRAL HOTLINE AT . IF YOU CAN NOT AFFORD TO SEE A PHYSICIAN YOU CAN CHOSE FROM THE FOLLOWING [facility] INSTITUTIONS: [facility] [address] [place] [address] [facility] [address] [place] [address] [facility] + [facility] [address] [place] [address] [facility] URGENT C[facility]/SPECIALTIES Additional Instructions: Call your primary care doctor TOMORROW for an appointment during the next 2-4 days and bring all the information and medications prescribed. If the symptoms get worse and your provider is unavailable, return to the Emergency Department immediately. HOLLIE THOMAS PA-C Aug 16, 2018 14:03
== END 2018-08-16 14:25 | disposition home or self-care (01) ==
LOC: FTE 12:30
DX: R10.2 Pelvic and perineal pain (principal)
CPT/HCPCS: 76830; 76856; 81001; 84703; Z7502